=== PATIENT | male | born 1980 | race Caucasian/White ===

== ENCOUNTER 2021-05-11 22:41 | Emergency (ER) | payer OTHER, SELFPAY ==
--- NOTE | 2021-05-11 | ECG_ITS ---
Test Reason : LEFT ARM NUMBNESS Blood Pressure : / mmHG Vent. Rate : 084 BPM Atrial Rate : 084 BPM P-R Int : 170 ms QRS Dur : 088 ms QT Int : 356 ms P-R-T Axes : 054 048 038 degrees QTc Int : 420 ms Normal sinus rhythm Normal ECG Premature ventricular complexes are no longer Present Referred By: Generic ED Physician Electronically Signed By:FALGUNI GRADY MD
--- NOTE | ~2021-05-11 | XR_ITS ---
EXAMINATION: XR CHEST CLINICAL INFORMATION: Chest pain COMPARISON: None TECHNIQUE: 2 views of the chest were obtained. FINDINGS: The lungs are clear with no focal consolidation. No evidence of pneumothorax, pulmonary edema, or pleural effusions. The cardiomediastinal silhouette is unremarkable. No acute osseous findings. XR/XR chest 2V IMPRESSION: No acute cardiopulmonary findings.
[2021-05-11 22:46] VITALS: BP 161/89; PULSE 90; RESP 16; TEMP 36.7; O2SAT 97; BMI 29.0
--- NOTE | 2021-05-12 00:34 | ED_ITS ---
HPI - General Adult General Chief complaint: General Medical Stated complaint: left arm pain ,nausea Time Seen by Provider: 05/11/21 22:48 Source: patient Mode of arrival: ambulatory History of Present Illness HPI narrative: This is a 40-year-old male without significant past medical history, and denies any family history of early cardiac disease/CVA and presents with acute onset of left shoulder pain at approximately 9:00 p.m. that was sharp in nature at the anterior aspect while he was sitting, watching TV. This was also associated with extension into the distal aspect of his arm with associated numbness/tingling that specifically affected his ring and pinky finger. Patient states that he thinks his arm was bent and resting on the arm of the couch but states that it did not improve the symptoms. He then felt short of breath, nauseous with diaphoresis and but denies dizziness/headache or chest pressure. Patient denies any recent exercise regimen and, falls, but states he did play lacrosse on Thursday but denies any injury at that time. Currently, patient describes that although the pain has somewhat improved he is still experiencing reproducible pain at the left anterior shoulder and the tingling has improved in to the ring/pinky finger. Related Data Allergies Allergy/AdvReac Type Severity Reaction Status Date / Time No Known Allergies Allergy Unverified 03/29/20 15:13 Review of Systems Review of Systems: Pertinent positives and negatives as stated in HPI and 10 point review of systems is otherwise negative. PMFSH Past Medical History Source: nursing notes reviewed Social History Social History Alcohol intake: unknown Patient Tobacco Use Status: Tobacco use Unknown Use of substances other than those prescribed or required for medical reasons: Unknown Advance Directives: No Advance Directives Information Provided: Yes Physical Exam Vital Signs: Vital Signs: Last Vital Signs Temp 98.1 F 05/11/21 22:46 Pulse 64 05/12/21 02:29 Resp 16 05/12/21 02:29 BP 135/84 05/12/21 02:29 Pulse Ox 97 05/12/21 02:29 Body Mass Index 29.0 VITAL SIGNS: Reviewed. GENERAL: Well developed, well nourished, in no acute distress. HEAD: Normocephalic/atraumatic EYES: PERRLA, EOMI EARS: Ext canals without abnormality NOSE: Nares patent bilateral OROPHARYNX: no oral lesions noted, posterior pharynx clear NECK: Supple, no adenopathy LUNGS: Normal breath sounds. No adventitious sounds or accessory muscle use. SpO2<97> CARDIOVASCULAR: Regular rate and rhythm without noted murmurs, no JVD or lower extremity edema. ABDOMEN: Soft, non-tender, non-distended with bowel sounds. LUE: Reproducible pain on palpation at the bicipital groove that does not change with flexion/extension/ABduction, there is no pain on palpation over the ulnar groove at the elbow and patient denies sensation difference between radial and ulnar nerve distribution in the fingers. Strength is 5/5, capillary refill less than 3 seconds, there is no erythema/induration/swelling to this extremity, palpable radial and ulnar pulses. SKIN: Inspection of the skin reveals no rashes NEUROLOGIC: Alert and oriented x 4. Strength and sensation to light touch were g rossly intact x 4. Course Course Course Narrative: 40-year-old male with history and clinical presentation suggestive of positional neuropathy, and lower clinical suspicion for cardiac or neurologic etiologies. Review of all investigations otherwise negative for acute findings to suggest cardiopulmonary etiology. Patient was provide with combination analgesics, but states he has had almost complete resolution his left upper extremity symptoms prior to receiving the Serial troponins remain undetectable patient has heart score that is low risk. Suspect that this is a combination positional neuropathy possibly combined with overuse injury from playing lacrosse. All results discussed with patient in he was recommended to follow-up with his primary care provider. Medical Decision Making Lab Data Result diagrams: 05/12/21 00:34 05/12/21 00:34 Labs: Lab Results 05/12/21 05/12/21 05/12/21 Range/Units 00:34 00:34 00:34 WBC 8.0 (4.8-10.8) X10*3/uL RBC 5.05 (4.60-5.80) X10*6/uL Hgb 15.3 (14.0-18.0) g/dl Hct 43.0 (42.0-52.0) % MCV 85.1 (80.0-98.0) fL MCH 30.3 (27.0-33.0) pg MCHC 35.6 (31.0-36.0) g/dl RDW 12.5 (11.0-16.0) % Plt Count 249 (160-400) X10*3/uL MPV 11.3 (9.4-12.4) fL Immature Gran % (Auto) 0.2 (0.0-0.4) % Neut % (Auto) 65.3 (45-73) % Lymph % (Auto) 22.9 (20-40) % [place] % (Auto) 9.8 (2-11) % Eos % (Auto) 1.1 (0-4) % Baso % (Auto) 0.7 (0-2) % Lymph # (Auto) 1.8 (1.2-4.9) X10*3/uL [place] # (Auto) 0.8 (0.1-1.2) X10*3/uL Eos # (Auto) 0.1 (0.0-0.4) X10*3/uL Baso # (Auto) 0.1 (0.0-0.2) X10*3/uL Abs Immat Gran (auto) 0.02 (0.00-0.03) X10*3/uL Absolute Neuts (auto) 5.23 (2.0-8.3) x10*3/uL Absolute Nucleated RBC 0.000 (0.0-0.012) X10*3/uL Nucleated RBC % (auto) 0.0 (0.0-0.2) /100WBC D-Dimer < 200 NG/ML Sodium 143 (135-145) mmol/L Potassium 4.0 (3.3-5.1) mmol/L Chloride 109 H (96-108) mmol/L Carbon Dioxide 24 (22-29) mmol/L Anion Gap 14 (12-20) BUN 15 (9-16) mg/dL Creatinine 0.97 (0.5-1.4) mg/dL Estim Creat Clear Calc 124.5 Estimated GFR > 60 Random Glucose 101 (60-115) mg/dL Calcium 9.7 (8.4-10.2) mg/dL Total Bilirubin 0.3 (0.0-1.0) mg/dL AST 20 (5-37) U/L ALT 34 (0-40) U/L Alkaline Phosphatase 67 (39-117) U/L Troponin I High Sens (<3.5-35.0) ng/L Total Protein 7.2 (6.5-8.0) g/dL Albumin 4.5 (3.5-5.0) g/dL 05/12/21 05/12/21 Range/Units 00:34 02:24 WBC (4.8-10.8) X10*3/uL RBC (4.60-5.80) X10*6/uL Hgb (14.0-18.0) g/dl Hct (42.0-52.0) % MCV (80.0-98.0) fL MCH (27.0-33.0) pg MCHC (31.0-36.0) g/dl RDW (11.0-16.0) % Plt Count (160-400) X10*3/uL MPV (9.4-12.4) fL Immature Gran % (Auto) (0.0-0.4) % Neut % (Auto) (45-73) % Lymph % (Auto) (20-40) % [place] % (Auto) (2-11) % Eos % (Auto) (0-4) % Baso % (Auto) (0-2) % Lymph # (Auto) (1.2-4.9) X10*3/uL [place] # (Auto) (0.1-1.2) X10*3/uL Eos # (Auto) (0.0-0.4) X10*3/uL Baso # (Auto) (0.0-0.2) X10*3/uL Abs Immat Gran (auto) (0.00-0.03) X10*3/uL Absolute Neuts (auto) (2.0-8.3) x10*3/uL Absolute Nucleated RBC (0.0-0.012) X10*3/uL Nucleated RBC % (auto) (0.0-0.2) /100WBC D-Dimer NG/ML Sodium (135-145) mmol/L Potassium (3.3-5.1) mmol/L Chloride (96-108) mmol/L Carbon Dioxide (22-29) mmol/L Anion Gap (12-20) BUN (9-16) mg/dL Creatinine (0.5-1.4) mg/dL Estim Creat Clear Calc Estimated GFR Random Glucose (60-115) mg/dL Calcium (8.4-10.2) mg/dL Total Bilirubin (0.0-1.0) mg/dL AST (5-37) U/L ALT (0-40) U/L Alkaline Phosphatase (39-117) U/L Troponin I High Sens < 3.5 < 3.5 (<3.5-35.0) ng/L Total Protein (6.5-8.0) g/dL Albumin (3.5-5.0) g/dL ECG Data Attestation: I personally reviewed and interpreted this ECG as follows: Prior ECG tracings: not available for review Interpretation: Normal sinus rhythm, HR-84, no STEMI, NV/QRS/QTC are within normal limits. Discharge Plan Discharge Clinical Impression: Atypical chest pain Patient Disposition: Home, Self-Care Instructions: Peripheral Neuropathy (ED) Additional Instructions: 1. Follow-up your primary care provider Thursday morning for re-evaluation and further outpatient workup/management. 2. Recommend using [id number] Tylenol/ibuprofen as needed for pain c ontrol. Return to the ER for acute worsening of symptoms. Referrals: Tab Davis MD [Primary Care Provider] - 2 days
[2021-05-12 00:41] LABS: MANUAL DIFF FLAG NO
[2021-05-12 00:42] LABS: Basophils Absolute Auto 0.1 X10*3/uL (0.0-0.2); Basophils Percent Auto 0.7 % (0-2); Eosinophils Absolute Auto 0.1 X10*3/uL (0.0-0.4); Eosinophils Percent Auto 1.1 % (0-4); Hemoglobin 15.3 g/dl (14.0-18.0); Imm Gran Abs Auto 0.02 X10*3/uL (0.00-0.03); Imm Gran Pct Auto 0.2 % (0.0-0.4); Lymphocytes Absolute Auto 1.8 X10*3/uL (1.2-4.9); Lymphocytes Percent Auto 22.9 % (20-40); Mean Corpuscular HGB Conc 35.6 g/dl (31.0-36.0); Mean Corpuscular Hemoglobin 30.3 pg (27.0-33.0); Mean Corpuscular Volume 85.1 fL (80.0-98.0); Mean Platelet Volume 11.3 fL (9.4-12.4); Monocytes Absolute Auto 0.8 X10*3/uL (0.1-1.2); Monocytes Percent Auto 9.8 % (2-11); Neutrophils Absolute Auto 5.23 x10*3/uL (2.0-8.3); Neutrophils Percent Auto 65.3 % (45-73); Platelet Count 249 X10*3/uL (160-400); Red Blood Count 5.05 X10*6/uL (4.60-5.80); Red Cell Distribution Width 12.5 % (11.0-16.0)
[2021-05-12 00:54] LABS: D Dimer < 200 NG/ML
[2021-05-12 00:55] VITALS: BP 136/84; PULSE 68; RESP 21; O2SAT 96
--- NOTE | 2021-05-12 00:58 | PC.NURSE ---
Put pt on campus monitor per ROMELIA Loomis. will continue to monitor
[2021-05-12 01:04] LABS: Troponin-I High Sensitivity < 3.5 ng/L (<3.5-35.0)
[2021-05-12 01:08] LABS: Alanine Aminotransferase 34 U/L (0-40); Albumin Level 4.5 g/dL (3.5-5.0); Alkaline Phosphatase 67 U/L (39-117); Anion Gap 14 (12-20); Aspartate Amino Transferase 20 U/L (5-37); Bilirubin Total 0.3 mg/dL (0.0-1.0); Blood Urea Nitrogen 15 mg/dL (9-16); Calcium 9.7 mg/dL (8.4-10.2); Carbon Dioxide 24 mmol/L (22-29); Chloride 109 mmol/L (96-108); Creatinine Clr Calc Pharmacy 124.5; Estimated Glomerular Filt Rate > 60; Glucose Random 101 mg/dL (60-115); Sodium 143 mmol/L (135-145); Total Protein 7.2 g/dL (6.5-8.0)
[2021-05-12] MEDS: Acetaminophen 325 MG TABLET 975 MG PO (02:23)
[2021-05-12] MEDS: Ketorolac Tromethamine 15 MG/ML VIAL IM (02:24)
[2021-05-12 02:29] VITALS: BP 135/84; PULSE 64; RESP 16; O2SAT 97
[2021-05-12 02:48] LABS: Troponin-I High Sensitivity < 3.5 ng/L (<3.5-35.0)
== END 2021-05-12 03:05 | disposition home or self-care (01) ==
PROVIDERS: Emergency Provider Student in an Organized Health Care Education/Training Program; PCP Pediatrics Adolescent Medicine
DX: R07.89 Other chest pain (principal); M79.602 Pain in left arm; R06.02 Shortness of breath; Z79.899 Other long term (current) drug therapy
CPT/HCPCS: 36415; 71046; 80053; 84484; 85025; 85379; 93005; 96372; 99284; 99285; J1885